=== PATIENT | female | born 1960 | race Caucasian/White ===

== ENCOUNTER 2018-02-19 08:34 | Day surgery (SDC) | payer BC ==
[~2018-02-19 08:34] MED LIST: CEFAZOLIN 1 GM/50 ML (PMX) 50 ML IVPB; LIDOCAINE 2% (SDV) 5 ML INJ; NITROGLYCERIN (IC) 100 MCG/ML INJ; SOD CHLORIDE 0.9% 1,000 ML IV
[2018-02-19] MEDS ORDERED: PROPOFOL 20 ML (10:18)
[2018-02-19] MEDS ORDERED: CEFAZOLIN 1 GM INJ (10:19)
[2018-02-19] MEDS ORDERED: FENTAnyl 50 MCG/ML VIAL (10:19)
[2018-02-19] MEDS ORDERED: ONDANSETRON 4 MG INJ (10:19)
[2018-02-19] MEDS ORDERED: ROCURONIUM 50 MG INJ (10:41)
[2018-02-19] MEDS: BUPIVACAINE 0.25% (MPF) 30 ML INJ (12:14)
[2018-02-19] MEDS ORDERED: FENTAnyl 50 MCG/ML VIAL IV (13:00)
[2018-02-19] MEDS ORDERED: HYDROmorphONE (0.2 MG/ML) 10ML SYG IV ×2 (13:00)
[2018-02-19] MEDS: ONDANSETRON 4 MG INJ IV (13:04)
[2018-02-19] MEDS: FENTAnyl 50 MCG/ML VIAL IV ×2 (13:04→13:24)
[2018-02-19] MEDS: HYDROCODONE/APAP (5/325) TAB PO (13:27)
[2018-02-19] MEDS: KETOROLAC 30 MG INJ IV (13:41)
== END 2018-02-19 14:52 | disposition home or self-care (01) ==
LOC: SDS 08:34
DX: K64.2 Third degree hemorrhoids (principal); I10 Essential (primary) hypertension; E66.9 Obesity, unspecified; Z68.31 Body mass index [BMI] 31.0-31.9, adult
CPT/HCPCS: 46260; 88304